=== PATIENT | female | born 2000 | race Caucasian/White ===

== ENCOUNTER 2021-09-08 13:25 | Emergency (ER) | payer BC, SELFPAY ==
[2021-09-08 14:02] VITALS: BP 142/77; PULSE 100; RESP 16; TEMP 36.8; O2SAT 100
[2021-09-08 14:04] VITALS: BP 142/77; PULSE 100; RESP 16; TEMP 36.8; O2SAT 100
--- NOTE | 2021-09-08 14:51 | ED.EAR ---
HPI - Ear Problem General Chief complaint: Ear Stated complaint: Sore Throat Time Seen by Provider: 09/08/21 14:40 Source: patient Mode of arrival: ambulatory Limitations: no limitations History of Present Illness HPI Narrative: 21-year-old female presented for complaint of sore throat, onset today. She denies any associated sinus pressure congestion, ear pain, nausea, vomiting, fatigue, fever or chills. Took home covid test, negative. Denies sick contacts. Not taking anything for symptoms. Related Data Home Medications Medication Instructions Recorded Confirmed norgestimate-ethinyl estradiol 1 tablet PO DAILY 09/08/21 09/08/21 [Sprintec (28)] spironolactone 50 mg PO DAILY 09/08/21 09/08/21 Allergies Allergy/AdvReac Type Severity Reaction Status Date / Time No Known Allergies Allergy Unknown Unverified 11/18/15 15:04 Review of Systems Review of Systems: CONSTITUTIONAL: Denies body aches, fever, chills, or sweats. EYES: Denies visual changes, redness, or discharge. ENT: Endorses sore throat, Denies rhinorrhea, congestion, or otalgia. CARDIOVASCULAR: Denies chest pain, palpitations, or edema. RESPIRATORY: Denies cough or dyspnea. GASTROINTESTINAL: Denies abdominal pain, nausea, vomiting, or diarrhea. GENITOURINARY: Denies dysuria or hematuria. SKIN: Denies rash, itching, or wounds. MUSCULOSKELETAL: Denies back pain, joint pain, or myalgia. NEUROLOGIC: Denies headache, numbness, tingling, or weakness. PSYCH: Denies depression or anxiety. PMFSH Comments At time of signature, I have reviewed and agree with nursing past medical, surgical, social and family history unless otherwise noted. Please see nursing chart for further information. There is no relevant family history pertinent to the presenting complaint Exam Narrative: GENERAL: Well-appearing, well-nourished, and in no acute distress. HEAD: Normocephalic, atraumatic. EYES: EOMI. No redness or drainage. Conjunctivae normal. ENT: Mucous membranes pink and moist. No rhinorrhea. TMs normal bilaterally. Posterior oropharynx erythematous, tonsils 2+ without exudate Uvula midline. NECK: Normal AROM. Supple. No lymphadenopathy. CHEST: No respiratory distress. Clear to auscultation. HEART: Regular rate and rhythm. No murmur appreciated. Normal peripheral pulses. ABDOMEN: Soft, nontender, nondistended, normal active bowel sounds. MUSCULOSKELETAL: No bony tenderness. EXTREMITIES: Normal range of motion. No edema. SKIN: Warm, dry, no rash. Capillary refill normal. Normal skin turgor. NEURO: No focal deficits. Alert and oriented x3. Gait steady. PSYCH: Normal affect. No signs of depression or anxiety. Course Course Emergency Course: Patient is aware of diagnosis, understands and agrees to treatment plan. Anticipatory guidance given. Patient agrees to follow-up as directed and is aware of reasons to seek care at the emergency department. Portions of this record may have been created with voice recognition software Level of Care: Express Care Visit Vital Signs Vital signs: Vital Signs Temperature 98.2 F 09/08/21 14:02 Pulse Rate 100 09/08/21 14:02 Respiratory Rate 16 09/08/21 14:02 Blood Pressure 142/77 H 09/08/21 14:02 Pulse Oximetry 100 09/08/21 14:02 Temperature 98.2 F 09/08/21 14:04 Pulse Rate 100 09/08/21 14:04 Respiratory Rate 16 09/08/21 14:04 Blood Pressure 142/77 H 09/08/21 14:04 Pulse Oximetry 100 09/08/21 14:04 Reviewed Medical Decision Making Differential Diagnosis Differential Diagnosis: Pharyngitis, strep throat, viral infection Vital Signs Vital Signs: Vital Signs Temperature 98.2 F 09/08/21 14:02 Pulse Rate 100 09/08/21 14:02 Respiratory Rate 16 09/08/21 14:02 Blood Pressure 142/77 H 09/08/21 14:02 Pulse Oximetry 100 09/08/21 14:02 Temperature 98.2 F 09/08/21 14:04 Pulse Rate 100 09/08/21 14:04 Respiratory Rate 16 09/08/21 14:04 Blood Pressure 142/77 H
== END 2021-09-08 15:03 | disposition home or self-care (01) ==
PROVIDERS: Emergency Provider Nurse Practitioner Family
DX: J02.9 Acute pharyngitis, unspecified (principal)
CPT/HCPCS: 87081; 87880; 99203; G0463

== ENCOUNTER 2024-09-12 08:21 | Emergency (ER) | payer OTHER, SELFPAY ==
[2024-09-12 08:28] VITALS: BP 116/74; PULSE 99; RESP 20; TEMP 36.5; O2SAT 100
--- NOTE | 2024-09-12 08:32 | ED_ITS ---
HPI - Skin/Abscess/Foreign Bdy General Chief complaint: Skin/Abscess/Foreign Body Stated complaint: poss alergic reaction to spray Time Seen by Provider: 09/12/24 08:32 Source: patient Mode of arrival: ambulatory Limitations: no limitations History of Present Illness HPI narrative: 24 y/o female presented for c/o redness, swelling and itching to left ear. Onset yesterday after using Bactene spray for 2 new inner ear piercings. Piercings were done 3 days ago. Started the spray yesterday and immediately felt itching and burning to the ear and where the spray dripped onto her neck. Pt applied hydrocortisone cream and took Betsy yesterday. Denies lip, tongue, or throat swelling, shortness of breath or wheezing. Denies changes to soap, detergent, lotion, or any other exposures. No one else in the house or any contacts with similar symptoms. Related Data Home Medications ?Medication ?Instructions ?Recorded ?Confirmed ?Last Taken ?Type norgestimate 0.25 mg-ethinyl 1 tablet PO DAILY 09/08/21 09/08/21 Unknown History estradiol 35 mcg tablet (Sprintec (28)) spironolactone 50 mg tablet 50 mg PO DAILY 09/08/21 09/08/21 Unknown History dextroamphetamine-amphetamine ER 20 mg PO DAILY 09/12/24 Unknown History 20 mg 24hr capsule,extend release spironolactone 100 mg tablet 100 mg PO DAILY 09/12/24 Unknown History Allergies Allergy/AdvReac Type Severity Reaction Status Date / Time alcohol (From Bactine (with Allergy Intermediate Rash Verified 09/12/24 08:33 alcohol)) benzalkonium chloride (From Allergy Intermediate Rash Verified 09/12/24 08:33 Bactine (with alcohol)) lidocaine (From Bactine Allergy Intermediate Rash Verified 09/12/24 08:33 (with alcohol)) Review of Systems 2 Review of Systems: CONSTITUTIONAL: Denies body aches, fever, chills, or sweats. EYES: Denies visual changes, redness, or discharge. ENT: Denies rhinorrhea, congestion CARDIOVASCULAR: Denies chest pain, palpitations, or edema. RESPIRATORY: Denies cough or dyspnea. GASTROINTESTINAL: Denies abdominal pain, nausea, vomiting, or diarrhea. SKIN: per HPI MUSCULOSKELETAL: Denies back pain, joint pain, or myalgia. NEUROLOGIC: Denies headache, numbness, tingling, or weakness. PMFSH Comments At time of signature, I have reviewed and agree with nursing past medical, surgical, social and family history unless otherwise noted. Please see nursing chart for further information. There is no relevant family history pertinent to the presenting complaint Exam 2 Narrative: GENERAL: Well-appearing EYES: conjunctivae clear, and EOMI. ENT: left outer ear is erythematous with papules and mild swelling, extending to posterior ear and left neck. Nontender. No drainage. Canal not erythematous or swollen. New bar piercing noted to [place] with mild dried bloody drainage. Stud piercing to triangular fossa area. No swelling or purulent drainage noted to the piercings. Mucous membranes moist. Oropharynx without edema, erythema or lesions. NECK: Supple. mild left posterior auricular lymphadenopathy and erythema. CHEST: Clear to auscultation. HEART: Regular rate and rhythm. SKIN: Warm, dry. NEURO: Alert and oriented x3. HENMT: Outer ear/TM images: 1. bar piercing. 2. stud piercing Course Course Emergency Course: Patient is aware of diagnosis, understands and agrees to treatment plan. Anticipatory guidance given. Patient agrees to follow-up as directed and is aware of reasons to seek care at the emergency department. Portions of this record may have been created with voice recognition software Level of Care: Express Care Visit Vital Signs Vital signs: Reviewed MDM - Skin/Abscess/Foreign Bdy MDM Narrative Medical decision making narrative: Instructed patient to remove the older piercings due to swelling. Discussed physical exam findings c/w allergic rxn to bactene spray. Pt will dc use. reviewed Rx's. Advised supportive measures and signs/symptoms to go to the ER. Pt is appropriate for outpt treatment and f/u. Differential Diagnosis Differential diagnosis: Likely abscess of skin or subcutaneous tissue, viral exanthem, urticaria, herpes zoster, allergic reaction to drug, cellulitis, eczema, impetigo and contact dermatitis Discharge Plan Discharge Clinical Impression: Contact dermatitis Qualifiers: Contact dermatitis type: allergic Contact dermatitis trigger: unspecified trigger Qualified Code(s): L23.9 - Allergic contact dermatitis, unspecified cause Patient Disposition: Home, Self-Care Condition: Stable Instructions: Antibiotic Form, General Allergic Reaction (ED) Additional Instructions: Take steroid and Pepcid as directed. Benadryl every 8 hours as needed (Or Zyrtec/Betsy/Claritin according to package directions) Cool compresses to the sites of itching, avoid hot water. Avoid scratching to reduce the risk of infection Tylenol/ibuprofen as needed for pain Take antibiotic as directed and use mupirocin ointment as directed Follow up with your primary care provider as needed in 1 week Go to the ER for worsening symptoms or concerns (lip, tongue, throat swelling/itching, trouble breathing etc) Patient Language: Sinhala Prescriptions: New famotidine [Pepcid] 40 mg tablet 40 mg PO DAILY Qty: 10 0RF cephalexin 500 mg capsule 500 mg PO Q8H 5 Days Qty: 15 0RF mupirocin 2 % ointment 1 applic topical BID 7 Days Qty: 22 0RF prednisone 20 mg tablet 40 mg PO DAILY 5 Days Qty: 10 0RF No Action spironolactone 100 mg tablet 100 mg PO DAILY dextroamphetamine-amphetamine 20 mg capsule,extended release 24hr 20 mg PO DAILY norgestimate-ethinyl estradiol [Sprintec (28)] 0.25-35 mg-mcg Tablet 1 tablet PO DAILY spironolactone 50 mg tablet 50 mg PO DAILY Follow-up/Referrals: Margie,Dave Enciso MD [Primary Care Provider] - Time of Disposition: 08:46
== END 2024-09-12 08:47 | disposition home or self-care (01) ==
PROVIDERS: Emergency Provider Nurse Practitioner Family; PCP Internal Medicine
DX: L23.3 Allergic contact dermatitis due to drugs in contact with skin (principal); T49.0X5A Adverse effect of local antifungal, anti-infective and anti-inflammatory drugs, initial encounter
CPT/HCPCS: 99213; G0463